=== PATIENT | female | born 1945 | race Caucasian/White ===

== ENCOUNTER 2016-09-14 12:28 | Emergency (ER) | payer MEDICARE ==
[2016-09-14 13:06] LABS: Bilirubin Negative (Negative); Blood, Urine Moderate (Negative); Glucose, Urine (Dipstick) Negative (Negative); Ketone, Urine Negative (Negative); Nitrite Negative (Negative); Protein, Urine (Dipstick) Negative (Neg-Trace); Urobilinogen 0.2 mg/dL (0.2-1.0)
[2016-09-14 13:08] LABS: Bacteria/HPF 1+ HPF (None Seen); Squamous Epithelial 21-50 HPF (0-3)
[2016-09-14] MEDS ORDERED: Cipro 250 MG TAB ONE (13:17)
--- NOTE | 2016-09-14 13:29 | ERRECORD ---
[facility] EMERGENCY RECORD HPI UTI (12:59 JLOY) CHIEF COMPLAINT: Patient presents for evaluation of urinary tract infection signs or symptoms:, dysuria, frequency, Patient presents for evaluation of Pt with 2-3 days of UTI symptoms. Blood sugar also increased to 250s from 150s. HISTORIAN: History provided by patient. LOCATION: No localizing symptoms. TIME COURSE: Gradual onset of symptoms, There has been no change in the patient's symptoms over time. ASSOCIATED WITH FEMALE: No associated abdominal pain, No associated chills, No associated fever, No associated nausea, No associated vomiting. EXACERBATED BY: Patient's condition exacerbated by urination. RELIEVED BY: Patient's condition relieved by nothing. ROS (13:00 JLOY) CONSTITUTIONAL: Historian denies chills, denies fever. ENT: Historian denies rhinorrhea, denies sore throat. RESPIRATORY: Historian denies cough, denies shortness of breath. GI: Historian denies abdominal pain, denies diarrhea, denies nausea, denies vomiting. GENITOURINARY FEMALE: Historian reports dysuria, reports frequency, denies hematuria. MUSCULOSKELETAL: Historian denies back pain. NEUROLOGIC: Historian denies headache, Chronic dizziness, worse since starting new meds for depression in the past 1-2 weeks. 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 (12:40 GHIA) FEMALE SURGICAL HISTORY: as listed, Surgical history of hysterectomy, Surgical history of thyroidectomy, Notes: PARATHYROID REMOVED. (12:40 GHIA) PSYCHIATRIC HISTORY: No previous psychiatric history, No previous psychiatric history. (12:40 GHIA) SOCIAL HISTORY: Social History includes lives with , Patient denies alcohol use, Patient denies drug use, Patient has no smoking history, Patient denies alcohol use, Patient denies drug use, Patient has no smoking history. (12:40 GHIA) NOTES: Nursing records reviewed, Agree with nursing records. (13:01 JLOY) KNOWN ALLERGIES &a-1R&a+25V*p+0X*v9418V*c202B*c15G*c2P*p-0X&a-25V&a+1R Name: Eliana Arguello : 1945 F70 MedRec: [id number] AcctNum: [id number] Prepared: WedSep 14, 2016 13:37 by Interface Page 1 of 3 pMD [facility] EMERGENCY RECORD STEROID MAKES HER "WACKO" - DOESN'T KNOW NAME OF MED CURRENT MEDICATIONS No recorded medications VITAL SIGNS (12:43 [facility]) VITAL SIGNS: BP: 130/60, Pulse: 64, Resp: 18, Temp: 98.8 (Oral), Pain: 10, O2 sat: 96 on Room Air, Time: 09/14/2016 12:43. PHYSICAL EXAM (13:01 [facility]) CONSTITUTIONAL: Vital signs reviewed, Patient appears non toxic, Patient alert and oriented to person, place and time. EYES: Eye exam included findings of eyelids normal to inspection, Pupils equally round and reactive to light, Conjunctiva normal. ENT: Mouth exam normal, mucous membranes moist. RESPIRATORY CHEST: Respiratory exam included findings of no respiratory distress, Breath sounds clear, No wheezing, No rales, No rhonchi, Chest exam included findings of chest movement symmetrical. CARDIOVASCULAR: Cardiovascular exam included findings of heart rate regular rate and rhythm, Heart sounds normal. ABDOMEN FEMALE: Abdominal exam included findings of abdomen nontender, Bowel sounds normal. NEURO: [place] coma scale 15, Neuro exam findings include patient oriented to person, place and time, Speech normal. PSYCHIATRIC: Normal affect. MEDICATION ADMINISTRATION SUMMARY Drug Name: ciprofloxacin HCl oral, Dose Ordered: 250 mg, Route: Oral, Status: Given, Time: 13:19 09/14/2016, Detailed record available in Medication Service section. PROBLEM LIST No recorded problems DIAGNOSIS (13:17 JL) FINAL: PRIMARY: UTI. PRESCRIPTION (13:16 JL) ciprofloxacin HCl oral: TABLET : 250 mg : ORAL : Quantity: 250 Unit: mg Route: ORAL Schedule: 2 times a day Dispense: 3 days May substitute. Refills: No Refills . NOTES: No Refills. DISPOSITION PATIENT: Disposition Type: Discharge, Disposition: *Discharge Home. (13:17 JL) Patient left the department. (13:32 POLI) Rocha: &a-1R&a+25V*p+0X*p9822J*c202B*c15G*c2P*p-0X&a-25V&a+1R Name: Eliana Arguello : 1945 F70 MedRec: [id number] AcctNum: [id number] Prepared: WedSep 14, 2016 13:37 by Interface Page 2 of 3 pMD [facility] EMERGENCY RECORD EILEENIA=SWATI Galvez, Yasmine RAMIREZ=MD Mike, Cholo &a-1R&a+25V*p+0X*[id number]*c202B*c15G*c2P*p-0X&a-25V&a+1R Name: Eliana Arguello : 1945 F70 MedRec: [id number] AcctNum: [id number] Prepared: WedSep 14, 2016 13:37 by Interface Page 3 of 3 pMD MTDD
--- NOTE | 2016-09-14 13:34 | PICIS ---
[facility] EMERGENCY RECORD TRIAGE (12:36 GHIA) TRIAGE NOTES: Pt with painful, frequent urination. (12:36 GHIA) PATIENT: AGE: 70, GENDER: female, : Wed1945, TIME OF GREET: WedSep 14, 2016 12:29, PREFERRED LANGUAGE: Italian, ETHNICITY: Not or , ECODE BILLING MAP: [facility] ER, SSN: [id number], Zip Code: [address], KG WEIGHT: 90.72, PHONE: , , , PERSON ID: [id number], PCP: Out of town. (12:36 GHIA) NAME: Eliana Arguello (13:02) COMPLAINT: PAINFUL/FREQUENT URINATION. (12:36 GHIA) ADMISSION: URGENCY: 3 Urgent, ADMISSION SOURCE: Home, TRANSPORT: CAR, BED: TRIAGE. (12:36 GHIA) ASSESSMENT: Assessment: Frequent painful urination, Symptoms began 3 days. (12:40 GHIA) PAIN: Patient complains of pain described as, Location with urination, Pain is intermittent. (12:40 GHIA) IMMUNIZATIONS: Flu vaccine up to date, Tetanus immunization up to date, Pneumococcal vaccine up to date. (12:40 GHIA) SIRS SCORING: Heart Rate 55-109 (0), Temp range 96.8-101.1 (0), respiratory rate 12-24 (0), Mental Status altered: no (0). (12:40 GHIA) TRIAGE SCREENING: Patient denies suicidal ideation, Patient denies presence of domestic violence. (12:40 GHIA) LMP: LMP: Hysterectomy. (12:40 GHIA) TREATMENTS IN PROGRESS: Treatments given Prehospital: pt took morning meds this a.m. (12:40 GHIA) PROVIDERS: TRIAGE NURSE: Yasmine Galvez RN. (12:36 GHIA) PREVIOUS VISIT ALLERGIES: STEROID MAKES HER "WACKO" - DOESN'T KNOW NAME OF MED. (12:36 GHIA) STEROID MAKES HER "WACKO" - DOESN'T KNOW NAME OF MED. (12:40 GHIA) KNOWN ALLERGIES STEROID MAKES HER "WACKO" - DOESN'T KNOW NAME OF MED CURRENT MEDICATIONS No recorded medications VITAL SIGNS (12:43 GHIA) VITAL SIGNS: BP: 130/60, Pulse: 64, Resp: 18, Temp: 98.8 (Oral), Pain: 10, O2 sat: 96 on Room Air, Time: 09/14/2016 12:43. NURSING ASSESSMENT: HEAD-TO-TOE (12:44 GHIA) CONSTITUTIONAL: Patient arrives ambulatory, Gait steady, History obtained from patient, Patient appears comfortable, Patient cooperative, Patient alert, Oriented to person, place and time, Skin warm, Skin dry, Skin normal in color, Mucous membranes pink, Mucous membranes moist, Patient is well-groomed, Patient complains of &a-1R&a+25V*p+0X*k2509W*c202B*c15G*c2P*p-0X&a-25V&a+1R Name: Eliana Arguello : 1945 F70 MedRec: [id number] AcctNum: [id number] Prepared: WedSep 14, 2016 13:43 by Interface Page 1 of 6 pMD [facility] EMERGENCY RECORD Painful/frequent urination, Pt in room in bed. Assess. Plan of care of pt in ER discussed. PAIN: burning pain, with urination, Onset of pain 3 days ago. SKIN: Skin assessment findings include skin warm, Skin dry, Skin normal in color, Notes: intact. RESPIRATORY/CHEST: Respiratory assessment findings include respiratory effort easy. CARDIOVASCULAR: Cardiovascular assessment findings include heart rate normal. ABDOMEN: Abdomen assessment findings include abdomen symmetrical, no associated nausea, no associated vomiting, no associated diarrhea, no associated constipation. GENITOURINARY FEMALE: Associated with urinary complaints, burning, frequency, Date and time of last void: 20 min ago. NOTES: Emotional support needed and given, Patient tolerated procedure well. SAFETY: Side rails up, Cart/Stretcher in lowest position, Family at bedside, Call light within reach, Hospital ID band on. NURSING PROCEDURE: DISCHARGE NOTE (13:30 GHIA) DISCHARGE: Patient discharged to home, ambulating without assistance, patient walking, accompanied by //partner, Summary of Care printed/ provided, Discharge instructions given to patient, Discharge instructions given to at bedside, Simple or moderate discharge teaching performed, Prescriptions given and instructions on side effects given, Above person(s) verbalized understanding of discharge instructions and follow-up care. BELONGINGS: Belongings remain with patient, Valuables remain with patient. NOTES: Patient tolerated procedure well. SAFETY: Notes: Pt and cheerful and attentive to each other. NURSING PROCEDURE: NURSE NOTES NURSES NOTES: Notes: Er dr at bedside. (12:50 GHIA) Patient in no apparent distress, Assistance offered to patient, Patient is awaiting results, Notes: Pt ambulates to bathroom with SO assist. Pt cheerful. (13:10 GHIA) ORDER DETAILS Order Name: Culture, Urine, Status: Active, Time: 13:15 09/14/2016, User: JAMES, - Ordered for: MD Mckeon Joshua, - Entered by: MD Mckeon Joshua - WedSep 14, 2016 13:15, - Quantity: 1, Order Name: Urinalysis with Microscopic, Status: Active, Time: 12:48 09/14/2016, User: JAMES, &a-1R&a+25V*p+0X*d3736T*c202B*c15G*c2P*p-0X&a-25V&a+1R Name: Eliana Arguello : 1945 F70 MedRec: [id number] AcctNum: [id number] Prepared: WedSep 14, 2016 13:43 by Interface Page 2 of 6 pMD [facility] EMERGENCY RECORD - Ordered for: MD Mckeon Joshua, - Entered by: MD Mckeon Joshua - WedSep 14, 2016 12:48, - Quantity: 1. MEDICATION ADMINISTRATION SUMMARY Drug Name: ciprofloxacin HCl oral, Dose Ordered: 250 mg, Route: Oral, Status: Given, Time: 13:19 09/14/2016, Detailed record available in Medication Service section. MEDICATION SERVICE (13:19 JAMES) ciprofloxacin HCl oral: Order: ciprofloxacin HCl oral (ciprofloxacin HCl) - Dose: 250 mg : Oral Ordered by: Cholo Mckeon MD Entered by: Cholo Mckeon MD WedSep 14, 2016 13:16 , Acknowledged by: Yasmine Galvez RN WedSep 14, 2016 13:17 Documented as given by: Yasmine Galvez RN WedSep 14, 2016 13:19 Patient, Medication, Dose, Route and Time verified prior to administration. Amount given: 250 mg, Amount wasted: 0, Site: Medication administered P.O., Correct patient, time, route, dose and medication confirmed prior to administration, Patient advised of actions and side-effects prior to administration, Allergies confirmed and medications reviewed prior to administration, Emotional support needed and given, Patient tolerated procedure well, Patient in position of comfort, Side rails up, Cart in lowest position, Family at bedside, Call light in reach. HPI UTI (12:59 [facility]) CHIEF COMPLAINT: Patient presents for evaluation of urinary tract infection signs or symptoms:, dysuria, frequency, Patient presents for evaluation of Pt with 2-3 days of UTI symptoms. Blood sugar also increased to 250s from 150s. HISTORIAN: History provided by patient. LOCATION: No localizing symptoms. TIME COURSE: Gradual onset of symptoms, There has been no change in the patient's symptoms over time. ASSOCIATED WITH FEMALE: No associated abdominal pain, No associated chills, No associated fever, No associated nausea, No associated vomiting. EXACERBATED BY: Patient's condition exacerbated by urination. RELIEVED BY: Patient's condition relieved by nothing. ROS (13:00 [facility]) CONSTITUTIONAL: Historian denies chills, denies fever. ENT: Historian denies rhinorrhea, denies sore throat. RESPIRATORY: Historian denies cough, denies shortness of breath. GI: Historian denies abdominal pain, denies diarrhea, denies nausea, denies vomiting. GENITOURINARY FEMALE: Historian reports dysuria, &a-1R&a+25V*p+0X*v0809H*c202B*c15G*c2P*p-0X&a-25V&a+1R Name: Eliana Arguello : 1945 F70 MedRec: [id number] AcctNum: [id number] Prepared: WedSep 14, 2016 13:43 by Interface Page 3 of 6 pMD [facility] EMERGENCY RECORD reports frequency, denies hematuria. MUSCULOSKELETAL: Historian denies back pain. NEUROLOGIC: Historian denies headache, Chronic dizziness, worse since starting new meds for depression in the past 1-2 weeks. 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 (12:40 GHIA) FEMALE SURGICAL HISTORY: as listed, Surgical history of hysterectomy, Surgical history of thyroidectomy, Notes: PARATHYROID REMOVED. (12:40 GHIA) PSYCHIATRIC HISTORY: No previous psychiatric history, No previous psychiatric history. (12:40 GHIA) SOCIAL HISTORY: Social History includes lives with , Patient denies alcohol use, Patient denies drug use, Patient has no smoking history, Patient denies alcohol use, Patient denies drug use, Patient has no smoking history. (12:40 GHIA) NOTES: Nursing records reviewed, Agree with nursing records. (13:01 [facility]) PHYSICAL EXAM (13:01 [facility]) CONSTITUTIONAL: Vital signs reviewed, Patient appears non toxic, Patient alert and oriented to person, place and time. EYES: Eye exam included findings of eyelids normal to inspection, Pupils equally round and reactive to light, Conjunctiva normal. ENT: Mouth exam normal, mucous membranes moist. RESPIRATORY CHEST: Respiratory exam included findings of no respiratory distress, Breath sounds clear, No wheezing, No rales, No rhonchi, Chest exam included findings of chest movement symmetrical. CARDIOVASCULAR: Cardiovascular exam included findings of heart rate regular rate and rhythm, Heart sounds normal. ABDOMEN FEMALE: Abdominal exam included findings of abdomen nontender, Bowel sounds normal. NEURO: [place] coma scale 15, Neuro exam findings include patient oriented to person, place and time, Speech normal. PSYCHIATRIC: Normal affect. EVENTS TRANSFER: Triage to Emergency Triage. (WedSep 14, 2016 12:36 GHIA) Emergency Triage to Emergency Room -03. (12:46 [facility]) Removed from Emergency Emergency Room -03. (13:32 GHIA) &a-1R&a+25V*p+0X*k5021R*c202B*c15G*c2P*p-0X&a-25V&a+1R Name: Eliana Arguello : 1945 F70 MedRec: [id number] AcctNum: [id number] Prepared: Mon Sep 14, 2016 13:43 by Interface Page 4 of 6 pMD [facility] EMERGENCY RECORD PROBLEM LIST No recorded problems DIAGNOSIS (13:17 [facility]) FINAL: PRIMARY: UTI. DISPOSITION PATIENT: Disposition Type: Discharge, Disposition: *Discharge Home. (13:17 JL) Patient left the department. (13:32 [facility]) INSTRUCTION (13:17 [facility]) DISCHARGE: UTI CYSTITIS FEMALE ADULT. FOLLOWUP: Follow up with Primary Care Physician in 7-10 days. SPECIAL: Call your doctor tomorrow to discuss whether to stop any of your new medicines because of your dizziness. PRESCRIPTION (13:16 [facility]) ciprofloxacin HCl oral: TABLET : 250 mg : ORAL : Quantity: 250 Unit: mg Route: ORAL Schedule: 2 times a day Dispense: 3 days May substitute. Refills: No Refills . NOTES: No Refills. IMAGING (13:33 [facility]) *SUPPLY CHARGE SHEET: Image captured from scanner. *DISCHARGE INSTRUCTIONS RECEIPT: Image captured from scanner. ADMIN (13:18 [facility]) DIGITAL SIGNATURE: MD Mckeon Joshua. RESULTS (13:15 [facility]) LABORATORY: Urinalysis with Microscopic Collection DT: WedSep 14, 2016 13:02, Color Yellow , Range (Yellow), Clarity Clear , Range (Clear), Specific Moran, Urine 1.020 , Range (1.005-1.030), pH, Urine 5.5 , Range (5.0-9.0), *Leukocyte Large - H , Range (Negative), Nitrite Negative , Range (Negative), Protein, Urine (Dipstick) Negative mg/dL, Range (Neg-Trace), Glucose, Urine (Dipstick) Negative mg/dL, Range (Negative), Ketone, Urine Negative mg/dL, Range (Negative), Urobilinogen 0.2 mg/dL, Range (0.2-1.0), Bilirubin Negative , Range (Negative), *Blood, Urine Moderate - H , Range (Negative), RBC/HPF 4-6 HPF, Range (0-3), *WBC/HPF Greater Than 50-TNTC HPF, * - H , Range (0-3), *Squamous Epithelial 21-50 - H HPF, Range (0-3), &a-1R&a+25V*p+0X*e8152U*c202B*c15G*c2P*p-0X&a-25V&a+1R Name: Eliana Arguello : 1945 F70 MedRec: [id number] AcctNum: [id number] Prepared: WedSep 14, 2016 13:43 by Interface Page 5 of 6 pMD [facility] EMERGENCY RECORD *Bacteria/HPF 1+ - H HPF, Range (None Seen). Rocha: POLI=SWATI Galvez, Yasmine RAMIREZ=MD Mike, Cholo SALAS=SWATI Tolliver, Allyssa &a-1R&a+25V*p+0X*h7648I*c202B*c15G*c2P*p-0X&a-25V&a+1R Name: Eliana Arguello : 1945 F70 MedRec: [id number] AcctNum: [id number] Prepared: WedSep 14, 2016 13:43 by Interface Page 6 of 6 pMD MTDD
== END 2016-09-14 13:30 | disposition home or self-care (01) ==
LOC: NAV ERS 12:28
DX: N39.0 Urinary tract infection, site not specified (principal); E11.9 Type 2 diabetes mellitus without complications
CPT/HCPCS: 81001; 87077; 87086; 87186; 99283

== ENCOUNTER 2016-11-04 16:36 | Outpatient (CLI) | payer MEDICARE ==
[2016-11-04 17:04] LABS: Bilirubin Negative (Negative); Blood, Urine Negative (Negative); Glucose, Urine (Dipstick) 100 mg/dL (Negative); Ketone, Urine Negative (Negative); Nitrite Negative (Negative); Protein, Urine (Dipstick) Negative (Neg-Trace); Urobilinogen 0.2 mg/dL (0.2-1.0)
[2016-11-04 17:12] LABS: Bacteria/HPF Rare-Few HPF (None Seen); RBC/HPF None Seen HPF (0-3); WBC/HPF 0-3 HPF (0-3)
== END 2016-11-04 16:37 | disposition home or self-care (01) ==
LOC: NAV LABSP 16:36
PROVIDERS: ATTEND Family Medicine
DX: Z09 Encounter for follow-up examination after completed treatment for conditions other than malignant neoplasm (principal); Z87.440 Personal history of urinary (tract) infections
CPT/HCPCS: 81001

== ENCOUNTER 2016-11-09 15:54 | Outpatient (CLI) | payer MEDICARE ==
[2016-11-09 17:05] LABS: Bilirubin Negative (Negative); Blood, Urine Negative (Negative); Glucose, Urine (Dipstick) Negative (Negative); Ketone, Urine Negative (Negative); Nitrite Negative (Negative); Protein, Urine (Dipstick) Negative (Neg-Trace); Urobilinogen 0.2 mg/dL (0.2-1.0)
[2016-11-09 17:06] LABS: Bacteria/HPF 4+ HPF (None Seen); RBC/HPF None Seen HPF (0-3)
== END 2016-11-09 15:55 | disposition home or self-care (01) ==
LOC: NAV LABSP 15:54
PROVIDERS: ATTEND Family Medicine
DX: N39.0 Urinary tract infection, site not specified (principal)
CPT/HCPCS: 81001; 87086

== ENCOUNTER 2016-12-25 13:21 | Outpatient (CLI) | payer MEDICARE | END 2016-12-25 13:22 | disposition home or self-care (01) | LOC: NAV LABSP 13:21 | PROVIDERS: ATTEND Family Medicine | DX: R30.0 Dysuria (principal) ==

== ENCOUNTER 2017-01-01 13:51 | Outpatient (CLI) | payer MEDICARE ==
[2017-01-01 19:08] LABS: Hemoglobin A1c 6.9 % (4.0-6.0)
== END 2017-01-01 13:52 | disposition home or self-care (01) ==
LOC: NAV LABSP 13:51
PROVIDERS: ATTEND Family Medicine
DX: E11.9 Type 2 diabetes mellitus without complications (principal)
CPT/HCPCS: 83036

== ENCOUNTER 2017-01-15 09:39 | Outpatient (CLI) | payer MEDICARE ==
[2017-01-15 10:01] LABS: Bilirubin Negative (Negative); Blood, Urine Negative (Negative); Clarity Clear (Clear); Glucose, Urine (Dipstick) Negative (Negative); Leukocyte Negative (Negative); Nitrite Negative (Negative); Protein, Urine (Dipstick) Negative (Neg-Trace); Specific Gravity, Urine 1.025 (1.005-1.030); Urobilinogen 0.2 mg/dL (0.2-1.0); pH, Urine 5.5 (5.0-9.0)
[2017-01-15 15:17] LABS: Bacteria/HPF Rare-Few HPF (None Seen); RBC/HPF None Seen HPF (0-3); WBC/HPF 0-3 HPF (0-3)
== END 2017-01-15 09:40 | disposition home or self-care (01) ==
LOC: NAV LABSP 09:39
PROVIDERS: ATTEND Family Medicine
DX: R30.0 Dysuria (principal)
CPT/HCPCS: 81001; 87086

== ENCOUNTER 2017-03-05 17:07 | Outpatient (CLI) | payer MEDICARE ==
[2017-03-05 21:50] LABS: Bilirubin Negative (Negative); Blood, Urine Negative (Negative); Clarity Clear (Clear); Glucose, Urine (Dipstick) Negative (Negative); Leukocyte Negative (Negative); Nitrite Negative (Negative); Protein, Urine (Dipstick) Negative (Neg-Trace); Urobilinogen 0.2 mg/dL (0.2-1.0); pH, Urine 5.5 (5.0-9.0)
== END 2017-03-05 17:08 | disposition home or self-care (01) ==
LOC: NAV LABSP 17:07
PROVIDERS: ATTEND Family Medicine
DX: N39.0 Urinary tract infection, site not specified (principal)
CPT/HCPCS: 81003; 87086

== ENCOUNTER 2017-03-18 15:02 | Outpatient (CLI) | payer MEDICARE ==
[2017-03-18 20:03] LABS: Bilirubin Negative (Negative); Blood, Urine Negative (Negative); Clarity Clear (Clear); Glucose, Urine (Dipstick) 100 mg/dL (Negative); Leukocyte Negative (Negative); Nitrite Negative (Negative); Protein, Urine (Dipstick) Negative (Neg-Trace); Urobilinogen 0.2 mg/dL (0.2-1.0); pH, Urine 5.5 (5.0-9.0)
[2017-03-18 21:28] LABS: Bacteria/HPF Rare-Few HPF (None Seen); Squamous Epithelial 0-3 HPF (0-3); WBC/HPF 0-3 HPF (0-3)
[2017-03-18 21:29] LABS: Crystals/HPF RARE CA OXALATE HPF (Negative)
== END 2017-03-18 15:03 | disposition home or self-care (01) ==
LOC: NAV LABSP 15:02
PROVIDERS: ATTEND Family Medicine
DX: N39.0 Urinary tract infection, site not specified (principal)
CPT/HCPCS: 81001; 87086

== ENCOUNTER 2017-04-07 15:32 | Outpatient (CLI) | payer MEDICARE | END 2017-04-07 15:33 | disposition home or self-care (01) | LOC: NAV LABSP 15:32 | PROVIDERS: ATTEND Family Medicine | DX: E11.9 Type 2 diabetes mellitus without complications (principal) | CPT/HCPCS: 83036 ==

== ENCOUNTER 2017-05-26 10:25 | Emergency (ER) | payer MEDICARE, OTHER ==
[2017-05-26] MEDS ORDERED: Acetaminophen 500 MG TAB ONE (10:52)
[2017-05-26] MEDS ORDERED: Ibuprofen 200 MG TAB ONE (10:52)
--- NOTE | 2017-05-26 11:58 | RAD ---
THREE VIEWS LUMBOSACRAL SPINE: History: Ground level fall with back pain and tailbone pain. FINDINGS: Three views of the lumbosacral spine shows approximately 10% loss of height of the L4 vertebral body . This appears chronic rather than acute. There is approximately 10% height loss of the T12 vertebra l body. The age of this height loss is indeterminate. The vertebral bodies demonstrate normal alignm ent without subluxation. Mild to moderate degenerative changes are seen in the lower lumbar spine. Vascular calcifications are seen in the aorta. IMPRESSION: Wedge compression deformities of the T12 and L4 vertebral bodies are likely secondary to osteoporoti c compression fractures. An acute fracture is not definitely seen. POS: [facility]
--- NOTE | 2017-05-26 12:03 | RAD ---
SINGLE VIEW OF THE PELVIS: Comparison: None. History: Tailbone pain after a fall. FINDINGS: A single view of the pelvis shows no evidence of a fracture or dislocation. No degenerative changes seen in either hip. There are degenerative changes in the lumbar spine. IMPRESSION: No evidence of acute osseous abnormality in the bones of the pelvis. POS: [facility]
== END 2017-05-26 13:20 | disposition home or self-care (01) ==
LOC: NAV ERS 10:25
DX: S32.049A Unspecified fracture of fourth lumbar vertebra, initial encounter for closed fracture (principal); E11.9 Type 2 diabetes mellitus without complications; E05.90 Thyrotoxicosis, unspecified without thyrotoxic crisis or storm; Z79.4 Long term (current) use of insulin; Z86.73 Personal history of transient ischemic attack (TIA), and cerebral infarction without residual deficits; Z79.899 Other long term (current) drug therapy; W18.30XA Fall on same level, unspecified, initial encounter
CPT/HCPCS: 72100; 72170; 96372; J2270

== ENCOUNTER 2017-10-16 02:45 | Emergency (ER) | payer MEDICARE ==
[2017-10-16 03:27] LABS: #Basophils 0.1 thou/uL (0.0-0.2); #Eosinphils 0.2 thou/uL (0.0-0.7); #Lymphocytes 3.6 thou/uL (1.20-3.40); #Monocytes 0.7 thou/uL (0.11-0.59); #Neutrophils 6.2 thou/uL (1.40-6.50); %Basophils 0.8 % (0.0-1.0); %Eosinophils 2.3 % (0.0-10.0); %Lymphocytes 33.2 % (21.0-51.0); %Monocytes 6.5 % (0.0-10.0); %Neutrophils 57.3 % (42.0-75.0); Mean Corpuscular HGB CONC 32.1 g/dL (32.0-36.0); Mean Corpuscular Hemoglobin 28.2 pg (27.0-31.0); Mean Corpuscular Volume 87.7 fl (81.0-99.0); Mean Platelet Volume 9.1 fL (7.4-10.4); Platelet Count 254 thou/uL (130-400); RBC Distribution Width 12.9 % (11.5-14.5); Red Blood Cell (RBC) Count 3.92 mill/uL (4.20-5.40); White Blood Cell (WBC) Count 10.8 thou/uL (4.8-10.8)
[2017-10-16 03:48] LABS: ALT (SGPT) 9 U/L (8-55); AST (SGOT) 11 U/L (5-34); Albumin 3.8 g/dL (3.4-4.8); Alkaline Phosphatase 66 U/L (40-150); Anion Gap 14 mmol/L (10-20); BUN (Urea Nitrogen) 18 mg/dL (9.8-20.1); Bilirubin, Total 0.3 mg/dL (0.2-1.2); CK (CPK) 72 U/L (29-168); Calc. Creatinine Clearance 0 mL/min (70-130); Calcium 9.7 mg/dL (7.8-10.44); Carbon Dioxide 25 mmol/L (23-31); Chloride 106 mmol/L (98-107); Estimated GFR-MDRD 82; Globulin 2.5 g/dL (2.4-3.5); Glucose 101 mg/dL (80-115); Potassium 4.1 mmol/L (3.5-5.1); Protein, Total 6.3 g/dL (6.0-8.3); Sodium 141 mmol/L (136-145)
[2017-10-16 03:50] LABS: CKMB 1.5 ng/mL (0-6.6); Troponin I Less than 0.010 ng/mL (< 0.028)
[2017-10-16] MEDS ORDERED: HYDROcodone/Acetaminophen 5/325 mg Tablet ONE (04:19)
--- NOTE | 2017-10-16 08:52 | RAD ---
RIGHT FOOT 3 VIEWS: HISTORY: Right foot injury. FINDINGS: Lisfranc joint alignment is anatomic. Plantar arch is maintained. Mild osteophytosis is present thr oughout the foot. No acute fracture, dislocation, or aggressive osseous erosions are apparent. IMPRESSION: Mild osteoarthritic changes right foot. No acute osseous abnormalities are demonstrated. POS: [facility]
== END 2017-10-16 04:30 | disposition home or self-care (01) ==
LOC: NAV ERS 02:45
DX: S01.81XA Laceration without foreign body of other part of head, initial encounter (principal); E11.9 Type 2 diabetes mellitus without complications; E05.90 Thyrotoxicosis, unspecified without thyrotoxic crisis or storm; F41.9 Anxiety disorder, unspecified; Z79.4 Long term (current) use of insulin; Z86.73 Personal history of transient ischemic attack (TIA), and cerebral infarction without residual deficits; Z79.899 Other long term (current) drug therapy; W17.89XA Other fall from one level to another, initial encounter
CPT/HCPCS: 12011; 36415; 36416; 80053; 82553; 84484; 85025; 93005

== ENCOUNTER 2018-11-12 22:02 | Emergency (ER) | payer MEDICARE ==
[2018-11-12 22:53] LABS: #Basophils 0.1 thou/uL (0.0-0.2); #Eosinphils 0.2 thou/uL (0.0-0.7); #Lymphocytes 2.6 thou/uL (1.20-3.40); #Monocytes 0.7 thou/uL (0.11-0.59); #Neutrophils 5.1 thou/uL (1.40-6.50); %Basophils 0.7 % (0.0-1.0); %Eosinophils 2.4 % (0.0-10.0); %Lymphocytes 29.8 % (21.0-51.0); %Monocytes 8.3 % (0.0-10.0); %Neutrophils 58.9 % (42.0-75.0); Hemoglobin 10.8 g/dL (12.0-16.0); Mean Corpuscular HGB CONC 31.9 g/dL (32.0-36.0); Mean Corpuscular Hemoglobin 27.8 pg (27.0-31.0); Mean Corpuscular Volume 87.1 fL (78.0-98.0); Mean Platelet Volume 7.8 fL (7.4-10.4); Platelet Count 263 thou/uL (130-400); RBC Distribution Width 13.2 % (11.5-14.5); Red Blood Cell (RBC) Count 3.89 mill/uL (4.20-5.40); White Blood Cell (WBC) Count 8.7 thou/uL (4.8-10.8)
[2018-11-12 23:12] LABS: ALT (SGPT) 20 U/L (8-55); AST (SGOT) 18 U/L (5-34); Alkaline Phosphatase 85 U/L (40-150); Anion Gap 13 mmol/L (10-20); BUN (Urea Nitrogen) 15 mg/dL (9.8-20.1); Bilirubin, Total 0.3 mg/dL (0.2-1.2); Calc. Creatinine Clearance 0 mL/min (70-130); Calcium 9.6 mg/dL (7.8-10.44); Carbon Dioxide 23 mmol/L (23-31); Chloride 105 mmol/L (98-107); Estimated GFR-MDRD 74; Globulin 2.6 g/dL (2.4-3.5); Glucose 332 mg/dL (83-110); Protein, Total 6.6 g/dL (6.0-8.3); Sodium 137 mmol/L (136-145)
--- NOTE | 2018-11-12 23:21 | CT ---
CT BRAIN: 11/12/18 HISTORY: Fall. Injury. Noncontrast enhanced CT images brain obtained. No evidence of calvarial fracture is seen. The paranasal sinuses are well aerated. There is an old area of stroke in the right basal ganglia. No evidence of acute intracranial masses, hemorrhages, strokes or contusions seen. IMPRESSION: Small old right basal ganglia stroke, otherwise unremarkable CT brain. POS: [facility]
--- NOTE | 2018-11-12 23:22 | RAD ---
AP VIEW CHEST: 11/12/18 HISTORY: Fall, altered mental status. AP view chest is obtained on 11/12/18. AP view chest demonstrates the lungs to be well aerated. No evidence of active intrathoracic disease seen. No evidence of effusions, pneumonia or pneumothorax seen. IMPRESSION: Unremarkable AP view chest. POS: [facility]
--- NOTE | 2018-11-12 23:23 | CT ---
CT FACIAL BONES: 11/12/18 HISTORY: Fall. Axial images are obtained with coronal and sagittal reconstructions. Facial CT demonstrates no evidence of facial fractures. The sinuses are well aerated. IMPRESSION: No evidence of acute facial fractures seen. POS: [facility]
[2018-11-12] MEDS ORDERED: Sodium Chloride 0.9% 1,000 ML ONE (23:34)
[2018-11-13 00:18] LABS: Bilirubin Negative (Negative); Blood, Urine Trace (Negative); Clarity Clear (Clear); Glucose, Urine (Dipstick) >=1000 mg/dL (Negative); Leukocyte Negative (Negative); Nitrite Negative (Negative); Protein, Urine (Dipstick) Negative (Neg-Trace); Specific Gravity, Urine 1.015 (1.005-1.030); Urobilinogen 0.2 mg/dL (0.2-1.0); pH, Urine 5.5 (5.0-9.0)
[2018-11-13 00:20] LABS: Bacteria/HPF None Seen HPF (None Seen); Squamous Epithelial 0-3 HPF (0-3); WBC/HPF None Seen HPF (0-3)
== END 2018-11-13 00:48 | disposition home or self-care (01) ==
LOC: NAV ERS 22:02
DX: S00.33XA Contusion of nose, initial encounter (principal); F03.90 Unspecified dementia, unspecified severity, without behavioral disturbance, psychotic disturbance, mood disturbance, and anxiety; E11.9 Type 2 diabetes mellitus without complications; E05.90 Thyrotoxicosis, unspecified without thyrotoxic crisis or storm; Z86.73 Personal history of transient ischemic attack (TIA), and cerebral infarction without residual deficits; F41.9 Anxiety disorder, unspecified; Z79.4 Long term (current) use of insulin; Z79.899 Other long term (current) drug therapy; W19.XXXA Unspecified fall, initial encounter
CPT/HCPCS: 36415; 36416; 51701; 70450; 70486; 71045; 80053; 81003; 81015; 85025; 93005; 96360; J7050

== ENCOUNTER 2019-06-20 10:25 | Emergency (ER) | payer MEDICARE ==
[2019-06-20] MEDS ORDERED: Acetaminophen 500 MG TAB ONE (11:22)
--- NOTE | 2019-06-20 11:30 | CT ---
CT head without contrast: Multiple axial tomograms obtained through the head without IV enhancement. INDICATIONS: Injury COMPARISON: CT head 11/12/2018 FINDINGS: Ventricles have normal size and position. 2 focal calcifications are seen projecting along the right side of the upper falx. These benign calci fications are stable. No evidence of intracranial mass, hemorrhage, edema, or infarct. Visualized sinuses and mastoids appear clear. Bony calvarium appears unremarkable. Small scalp hematoma over the right frontal bone. IMPRESSION: No acute intracranial abnormality
--- NOTE | 2019-06-20 11:33 | RAD ---
EXAM: 4 views of the right elbow HISTORY: Elbow pain after fall COMPARISON: None FINDINGS: No elbow effusion is seen. There is no evidence of acute fracture or dislocation. No signi ficant degenerative changes are seen. No soft tissue swelling is present. IMPRESSION: No evidence of acute osseous abnormality.
--- NOTE | 2019-06-20 11:36 | RAD ---
EXAM: 4 views of the right knee HISTORY: Knee pain after fall COMPARISON: None FINDINGS: No knee effusion is seen. There is no evidence of acute fracture or dislocation. No signifi cant degenerative changes are seen. No soft tissue swelling is present. IMPRESSION: No evidence of acute osseous abnormality.
== END 2019-06-20 12:00 | disposition home or self-care (01) ==
LOC: NAV ERS 10:25
DX: S00.03XA Contusion of scalp, initial encounter (principal); S50.01XA Contusion of right elbow, initial encounter; S80.01XA Contusion of right knee, initial encounter; E11.9 Type 2 diabetes mellitus without complications; E03.9 Hypothyroidism, unspecified; F41.9 Anxiety disorder, unspecified; Z79.4 Long term (current) use of insulin; Z79.899 Other long term (current) drug therapy; Z86.73 Personal history of transient ischemic attack (TIA), and cerebral infarction without residual deficits; W18.30XA Fall on same level, unspecified, initial encounter
CPT/HCPCS: 70450

== ENCOUNTER 2020-04-16 00:43 | Emergency (ER) | payer MEDICARE ==
--- NOTE | 2020-04-16 07:11 | CT ---
PRELIMINARY REPORT/[facility]/EMERGENCY AFTER HOURS PROCEDURE: EXAM: CT Head Without Intravenous Contrast. CLINICAL HISTORY: Fall in hallway, hit nose, pt is stroke patient and does not remember the fall or why she is up. TECHNIQUE: Axial computed tomography images of the head/brain without intravenous contrast. Coronal and sagitta l reformatted images are provided. COMPARISON: None provided. FINDINGS: BRAIN: No acute intraparenchymal hemorrhage. No mass lesion. No CT evidence for acute territorial infarct. N o midline shift or extra-axial collection. VENTRICLES: No hydrocephalus. ORBITS: The orbits are unremarkable. SINUSES AND MASTOIDS: The paranasal sinuses and mastoid air cells are clear. SOFT TISSUES: No significant facial or scalp soft tissue swelling evident. No radiopaque foreign body is seen. BONES: No acute skull fracture. IMPRESSION: No acute intracranial abnormality. ELECTRONICALLY SIGNED BY: Elijah Uribe M.D. Apr 16, 2020 1:31:13 AM CDT This report is intended for review by the ordering physician only, in accordance of law. If you recei ve this report in error, please call [facility] at [phone]. FINAL REPORT EMERGENCY AFTER HOURS CT BRAIN: I agree with the preliminary report provided by [facility]. No acute intracranial abnormality demonstrated. The examination is not appreciably changed from maris rison dated 06/20/2019. POS: [facility]
--- NOTE | 2020-04-16 07:13 | CT ---
PRELIMINARY REPORT/[facility]/EMERGENCY AFTER HOURS PROCEDURE: EXAM: CT Cervical Spine Without Intravenous Contrast. CLINICAL HISTORY: Fall in hallway, hit nose, pt is stroke patient and does not remember the fall or why she is up. TECHNIQUE: Axial computed tomography images of the cervical spine without intravenous contrast. Sagittal and cor onal reformations performed. COMPARISON: CT head 04/16/2020 FINDINGS: BONES: No acute fracture or focal osseous lesion. Bony alignment is anatomic. DISCS / DEGENERATIVE CHANGES: C6-C7 intervertebral disc space loss with osteophytes. No significant central canal or neural foraminal stenosis. SOFT TISSUES: Soft tissue swelling over the nose. IMPRESSION: No acute cervical spine abnormality. ELECTRONICALLY SIGNED BY: Elijah Uribe M.D. Apr 16, 2020 1:34:20 AM CDT This report is intended for review by the ordering physician only, in accordance of law. If you recei ve this report in error, please call [facility] at [phone]. FINAL REPORT EMERGENCY AFTER HOURS CT CERVICAL SPINE: I agree with the preliminary report provided by [facility]. No acute fracture or subluxation is evident. There is mild spondylosis of the cervical spine consisti ng of facet osteoarthrosis and disc degenerative disease. This is most pronounced at C6-7. Prevertebr al soft tissues appear within normal limits. There is partial fusion of the left mastoid air cells. T he visualized lung apices are clear. POS:
== END 2020-04-16 01:46 | disposition home or self-care (01) ==
LOC: NAV ERS 00:43
DX: S00.33XA Contusion of nose, initial encounter (principal); S00.83XA Contusion of other part of head, initial encounter; S80.219A Abrasion, unspecified knee, initial encounter; E11.9 Type 2 diabetes mellitus without complications; E05.90 Thyrotoxicosis, unspecified without thyrotoxic crisis or storm; F41.9 Anxiety disorder, unspecified; Z86.73 Personal history of transient ischemic attack (TIA), and cerebral infarction without residual deficits; Z79.4 Long term (current) use of insulin; Z79.899 Other long term (current) drug therapy; W18.30XA Fall on same level, unspecified, initial encounter
CPT/HCPCS: 70450; 72125